=== PATIENT | male | born 2000 | race Caucasian/White ===

== ENCOUNTER 2022-06-22 17:10 | Emergency (ER) | payer BC ==
[~2022-06-22] VITALS: Ht 185.4 cm; Wt 122.5 kg
[2022-06-22 17:57] VITALS: BP 136/72
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
[2022-06-22] MEDS ORDERED: IBUP-1955 PO (19:33)
--- NOTE | 2022-06-22 19:47 | NUR ---
Patient discharged to home in stable condition. RX Written and verbal after care instructions given. Patient verbalizes understanding of instruction. pt ambulatory with a steady gait
== END 2022-06-22 22:19 | disposition home or self-care (01) ==
LOC: ER 17:15
DX: S90.111A Contusion of right great toe without damage to nail, initial encounter (principal); V89.2XXA Person injured in unspecified motor-vehicle accident, traffic, initial encounter; Y93.89 Activity, other specified; Y92.89 Other specified places as the place of occurrence of the external cause; Y99.8 Other external cause status
CPT/HCPCS: 73630-TC

== ENCOUNTER 2022-12-21 13:53 | Emergency (ER) | payer BC ==
[~2022-12-21] VITALS: Ht 188 cm; Wt 117.9 kg
[~2022-12-21 13:53] MED LIST: IBUP-1955 PO
[2022-12-21 14:24] VITALS: BP 107/62
--- NOTE | 2022-12-21 14:36 | NUR ---
seen pt at bedside
--- NOTE | 2022-12-21 15:09 | NUR ---
Patient discharged to home in stable condition. Written and verbal after care instructions given. Patient verbalizes understanding of instruction.
== END 2022-12-21 15:09 | disposition home or self-care (01) ==
LOC: ER 13:57
DX: K64.9 Unspecified hemorrhoids (principal)